=== PATIENT | male | born 1955 | race Caucasian/White ===

== ENCOUNTER 2022-11-05 01:29 | Emergency (ER) | payer MEDICARE ==
[~2022-11-05] VITALS: Ht 177.8 cm; Wt 95.5 kg
[2022-11-05 01:47] LABS: BASO # 0.1 K/mm3 (0.0-0.2); EOS # 0.2 K/mm3 (0.0-0.7); EOS % 2.7 % (0.0-4.0); GRAN # 4.1 K/mm3 (1.4-6.5); GRAN % 56.1 % (42.2-75.2); HEMATOCRIT 48.7 % (42.0-52.0); HEMOGLOBIN 16.5 g/dl (13.5-18.0); LYMPH # 2.1 K/mm3 (1.2-3.4); LYMPH % 29.4 % (20.0-51.0); MEAN CELL VOLUME 90 fl (80.0-100.0); MEAN CORPUSCULAR HEMOGLOBIN 31 pg (27-31); MEAN CORPUSCULAR HGB CONC 34 g/dl (33.0-37.0); MEAN PLATELET VOLUME 10.3 fl (7.4-10.4); MONO # 0.8 K/mm3 (0.1-0.6); MONO % 10.4 % (1.7-9.3); PLATELET COUNT 193 K/mm3 (130-400); REDCELL DISTRIBUTION WIDTH-CV 12.3 % (11.5-14.5)
[2022-11-05 02:08] LABS: BILIRUBIN,TOTAL 0.5 mg/dL (0.2-1.2); CALCIUM 9.4 mg/dL (8.4-10.2); CREATININE, serum 0.95 mg/dL (0.72-1.25); POTASSIUM 4.2 mmol/L (3.5-4.5); TOTAL PROTEIN 7.7 gm/dL (6.2-8.1)
[2022-11-05 02:14] LABS: TROPONIN-I 0.016 ng/mL (0.00-0.033)
[2022-11-05 03:46] VITALS: BP 125/83; PULSE 62; TEMP 97.7
== END 2022-11-05 03:50 | disposition home or self-care (01) ==
LOC: COL.ER 01:29
PROVIDERS: Family Medicine
DX: I10 Essential (primary) hypertension (principal)
CPT/HCPCS: J2060

== ENCOUNTER 2022-11-26 23:59 | Emergency (ER) | payer MEDICARE ==
[~2022-11-26] VITALS: Ht 175.3 cm; Wt 95.0 kg
[2022-11-27 01:42] VITALS: BP 169/90; PULSE 65; TEMP 98.1
== END 2022-11-27 01:42 | disposition home or self-care (01) ==
LOC: COL.ER 23:59
DX: I10 Essential (primary) hypertension (principal); Z79.899 Other long term (current) drug therapy